=== PATIENT | male | born 1985 | race African-American/Black ===

== ENCOUNTER 2019-12-11 23:42 | Emergency (ER) | payer SELFPAY ==
--- NOTE | 2019-12-12 01:02 | ER Document Report ---
ED Medical Screen (RME) - General Chief Complaint: Abdominal Pain Stated Complaint: ABDOMINAL PAIN Time Seen by Provider: 12/12/19 00:57 Notes: HPI: 34-year-old otherwise healthy male presenting to the emergency department complaining of right lower quadrant pain that is severe in nature. Patient states the pain started on the left side 2 days ago has been constant but now has rotated into the right lower quadrant region. Hurts to bend at the waist hurts to walk hurts to stand up straight. Denies dysuria. Denies penile or testicular pain. PHYSICAL EXAMINATION: Moderately uncomfortable. Rebound tenderness in the right lower quadrant on palpation limited exam in triage I have greeted and performed a rapid initial assessment of this patient. A comprehensive ED assessment and evaluation of the patient, analysis of test results and completion of medical decision making process will be conducted by an additional ED providers. ([facility]) - HPI Notes: 12/12/19 07:22 Chief complaint: Abdominal pain History of present illness: 34-year-old male presenting with 24-hour history abdominal pain initially starting in left lower quadrant and now migratory to right lower quadrant. Eating and drinking normally. No nausea, vomiting, fever, chills or dysuria. Patient reports hernia repair in childhood. No other surgery. Takes no regular medications. No known allergies. Cigarette smoker. Social alcohol. Regularly smokes marijuana. Patient is used cocaine within the last 24 hours. (ALBINA KAMARA) - Related Data Allergies/Adverse Reactions: No Known Allergies Allergy (Unverified 12/12/19 01:01) Past Medical History - General Information source: Patient, Friend, [facility] Records - Social History Cigarette use (# per day): Yes Frequency of alcohol use: Social Drug Abuse: Cocaine, Marijuana Family history: Reviewed & Not Pertinent Endocrine Medical History: Denies: Hx Diabetes Mellitus Type 1, Hx Diabetes Mellitus Type 2 GI Medical History: Reports: None Past Surgical History: Reports: Hx Herniorrhaphy Review of Systems - Review of Systems Notes: Constitutional: Negative for fever. HENT: Negative for sore throat. Eyes: Negative for visual changes. Cardiovascular: Negative for chest pain. Respiratory: Negative for shortness of breath. Gastrointestinal: As per HPI. Genitourinary: Negative for dysuria. Musculoskeletal: Negative for back pain. Skin: Negative for rash. Neurological: Negative for headaches, weakness or numbness. 10 point ROS negative except as marked above and in HPI. (ALBINA KAMARA) Physical Exam - Vital signs Vitals: Temp Pulse Resp BP Pulse Ox 99.1 F 97 18 147/80 H 99 12/12/19 00:16 12/12/19 00:16 12/12/19 00:16 12/12/19 00:16 12/12/19 00:16 - Notes Notes: GENERAL: Slender male approximately stated age appearing in no acute distress. SKIN: Good turgor no rashes. HEAD: Normocephalic atraumatic. EYES: PERRLA. EOMI. Conjunctivae and sclerae clear. EARS: CANALS AND TMS CLEAR. NOSE: CLEAR. MOUTH: Moist mucosa. Good dentition. No stridor or edema. No drooling. NECK: Supple. No masses or thyromegaly. No adenopathy. Carotids 2+ without bruits. No JVD. BACK: Symmetrical without tenderness. CHEST: Respirations unlabored. Breath sounds clear and symmetrical. HEART: Regular rhythm. No murmur gallop or rub. ABDOMEN: Exquisitely tender right lower quadrant. Soft without masses, o rganomegaly or rebound. Bowel sounds normally active. No bruits. GENITALIA: Deferred. EXTREMITIES: No edema. No calf tenderness. Cap refill less than 1.5 seconds. Dorsalis pedis and posterior tibial pulses 3+ and symmetrical. NEUROLOGICAL: GCS 15. Alert and oriented x3. Normal gait. Fluent speech. Cranial nerves II through XII intact. Sensorimotor and cerebellar normal. Normal tone. PSYCHIATRIC: Appropriate affect. (ALBINA KAMARA) Course - Laboratory Result Diagrams: 12/12/19 01:27 12/12/19 01:27 - Re-evaluation Re-evalutation: 12/12/19 07:28 Patient is tender right lower quadrant. Low-grade temperature. Normal white count. Unremarkable urinalysis. Radiologist CT abdomen/pelvis is negative for appendicitis of a right sided cecal diverticulitis. Unfortunately I cannot his images directly. Due to the degree of tenderness I am going to ask for surgical consultation from Dr. Luis Fernando Morales. In the meantime I will keep this man n.p .o. dose of IV Zosyn. (ALBINA KAMARA) - Vital Signs Vital signs: Temp Pulse Resp BP Pulse Ox 98.7 F 82 18 122/90 H 100 12/12/19 04:02 12/12/19 04:02 12/12/19 00:16 12/12/19 04:02 12/12/19 04:02 - Laboratory Laboratory results interpreted by me: 12/12/19 12/12/19 01:27 01:27 RBC 4.26 L Urine Urobilinogen 2.0 H
[2019-12-12 01:37] LABS: ABSOLUTE BASOPHILS # (AUTO) 0.1 10^3/uL (0.0-0.2); ABSOLUTE EOSINOPHILS # (AUTO) 0.1 10^3/uL (0.0-0.6); ABSOLUTE LYMPHOCYTES (AUTO) 2.3 10^3/uL (0.5-4.7); ABSOLUTE MONOCYTES (AUTO) 0.7 10^3/uL (0.1-1.4); ABSOLUTE NEUT (AUTO) 6.9 10^3/uL (1.7-8.2); BASOPHILS % (AUTO) 1.2 % (0-2); EOSINOPHILS % (AUTO) 0.8 % (0-6); HEMATOCRIT 40.4 % (37.9-51.0); HEMOGLOBIN 13.8 g/dL (13.5-17.0); LYMPHOCYTES % (AUTO) 22.6 % (13-45); MEAN CORPUSCULAR HEMOGLOBIN 32.5 pg (27.0-33.4); MEAN CORPUSCULAR HGB CONC 34.3 g/dL (32.0-36.0); MEAN CORPUSCULAR VOLUME 95 fl (80-97); MONOCYTES % (AUTO) 6.8 % (3-13); PLATELET COUNT 303 10^3/uL (150-450); RED BLOOD COUNT 4.26 10^6/uL (4.35-5.55); RED CELL DISTRIBUTION WIDTH 12.1 % (11.5-14.0); SEGMENTED NEUTROPHILS % (AUTO) 68.6 % (42-78); TOTAL CELLS COUNTED % (AUTO) 100 %
[2019-12-12 01:42] LABS: APPEARANCE,URINE CLEAR; BILIRUBIN,URINE NEGATIVE (NEGATIVE); COLOR,URINE YELLOW; GLUCOSE, URINE NEGATIVE (NEGATIVE); KETONES,URINE NEGATIVE (NEGATIVE); LEUKOCYTE ESTERASE,URINE NEGATIVE (NEGATIVE); NITRITE,URINE NEGATIVE (NEGATIVE); PROTEIN,URINE NEGATIVE (NEGATIVE); URINE SPECIFIC GRAVITY 1.025
[2019-12-12 02:05] LABS: ALBUMIN 4.4 g/dL (3.5-5.0); ALKALINE PHOSPHATASE 85 U/L (38-126); ANION GAP 8 (5-19); ASPARTATE AMINO TRANSFERASE 28 U/L (17-59); BILIRUBIN,DIRECT 0.4 mg/dL (0.0-0.4); BILIRUBIN,TOTAL 0.6 mg/dL (0.2-1.3); BLOOD UREA NITROGEN 12 mg/dL (7-20); CALCIUM 9.6 mg/dL (8.4-10.2); CARBON DIOXIDE 28 mmol/L (22-30); CHLORIDE 103 mmol/L (98-107); GLUCOSE 101 mg/dL (75-110); POTASSIUM 4.4 mmol/L (3.6-5.0); TOTAL PROTEIN 7.5 g/dL (6.3-8.2)
[2019-12-12 04:06] VITALS: BP 122/90
--- NOTE | 2019-12-12 05:45 | RADIOLOGY REPORT (SQ) ---
CLINICAL HISTORY: RLQ PAIN. CREAT 1.20 COMPARISON: None. TECHNIQUE: CT ABDOMEN PELVIS WITH IV CONTRAST on 12/12/2019 12:00 AM CDT This exam was performed according to our departmental dose-optimization program, which includes automated exposure control, adjustment of the mA and/or kV according to patient size and/or use of iterative reconstruction technique. FINDINGS: Lower lungs are clear. Abdomen: The liver is normal in appearance. There is no biliary dilatation. Gallbladder is normal in appearance. The pancreas and spleen are normal in appearance. The adrenal glands and kidneys are unremarkable. Abdominal aorta is normal in course and caliber without aneurysm. There is no free air. There is no retroperitoneal adenopathy. Pelvis: There is thickening of the inferior cecum with mild surrounding inflammation. There is an abnormal diverticulum projecting laterally. Urinary bladder is unremarkable. There is no free fluid. Appendix is normal. Skeleton: There are no acute osseous findings. No suspicious bony lesions. IMPRESSION: Normal appendix. Suspected cecal diverticulitis.
[2019-12-12] MEDS ORDERED: PIPERACILLIN/TAZOBACTAM 3.375 GM VIAL IV ONE (07:24)
[2019-12-12] MEDS ORDERED: NORMAL SALINE 1000 ML 1,000 ML IV ONE (07:25)
--- NOTE | 2019-12-12 07:43 | ER Document Report ---
ED General - General Chief Complaint: Lower Abdominal Pain Stated Complaint: ABDOMINAL PAIN Time Seen by Provider: 12/12/19 00:57 - HPI Notes: Chief complaint: Abdominal pain History of present illness: Generally healthy 34-year-old male presenting with 12-hour history of lower abdominal pain initially started in left lower quadrant now moving to right lower quadrant. No nausea, vomiting, fever or chills. Normal bowel movements. Normal oral intake. No prior GI history. Did have a repair of inguinal hernia in childhood. Smoker. Social alcohol. Daily use of marijuana. Occasional use of cocaine. - Related Data Allergies/Adverse Reactions: No Known Allergies Allergy (Unverified 12/12/19 01:01) Past Medical History - General Information source: Patient, Friend, [facility] Records - Social History Smoking Status: Current Every Day Smoker Cigarette use (# per day): Yes Frequency of alcohol use: Social Drug Abuse: Cocaine, Marijuana Family History: Reviewed & Not Pertinent Endocrine Medical History: Denies: Hx Diabetes Mellitus Type 1, Hx Diabetes Mellitus Type 2 GI Medical History: Reports: None Past Surgical History: Reports: Hx Herniorrhaphy Review of Systems - Review of Systems Notes: Constitutional: Negative for fever. HENT: Negative for sore throat. Eyes: Negative for visual changes. Cardiovascular: Negative for chest pain. Respiratory: Negative for shortness of breath. Gastrointestinal: As per HPI. Genitourinary: As per HPI. Musculoskeletal: Negative for back pain. Skin: Negative for rash. Neurological: Negative for headaches, weakness or numbness. 10 point ROS negative except as marked above and in HPI. Physical Exam - Vital signs Vitals: Temp Pulse Resp BP Pulse Ox 99.1 F 97 18 147/80 H 99 12/12/19 00:16 12/12/19 00:16 12/12/19 00:16 12/12/19 00:16 12/12/19 00:16 - Notes Notes: GENERAL: Slender male approximately stated age appearing in no acute distress. SKIN: Good turgor no rashes. HEAD: Normocephalic atraumatic. EYES: PERRLA. EOMI. Conjunctivae and sclerae clear. EARS: CANALS AND TMS CLEAR. NOSE: CLEAR. MOUTH: Moist mucosa. Good dentition. No stridor or edema. No drooling. NECK: Supple. No masses or thyromegaly. No adenopathy. Carotids 2+ without bruits. No JVD. BACK: Symmetrical without tenderness. CHEST: Respirations unlabored. Breath sounds clear and symmetrical. HEART: Regular rhythm. No murmur gallop or rub. ABDOMEN: Exquisitely tender right lower quadrant. Soft without masses, organomegaly or rebound. Bowel sounds normally active. No bruits. GENITALIA: Deferred. EXTREMITIES: No edema. No calf tenderness. Cap refill less than 1.5 seconds. Dorsalis pedis and posterior tibial pulses 3+ and symmetrical. NEUROLOGICAL: GCS 15. Alert and oriented x3. Normal gait. Fluent speech. Cr anial nerves II through XII intact. Sensorimotor and cerebellar normal. Normal tone. PSYCHIATRIC: Appropriate affect. Course - Re-evaluation Re-evalutation: 12/12/19 07:42 Patient has unremarkable urinalysis and normal white count. IV contrast CT abdomen/pelvis per radiologist shows normal appendix but question of cecal diverticulitis. I will ask for consultation from surgical stone call Dr. Luis Fernando Morales. Patient remains n.p.o. at this time. - Vital Signs Vital signs: Temp Pulse Resp BP Pulse Ox 98.7 F 82 18 122/90 H 100 12/12/19 04:02 12/12/19 04:02 12/12/19 00:16 12/12/19 04:02 12/12/19 04:02 - Laboratory Result Diagrams: 12/12/19 01:27 12/12/19 01:27 Laboratory results interpreted by me: 12/12/19 12/12/19 01:27 01:27 RBC 4.26 L Urine Urobilinogen 2.0 H - Diagnostic Test Radiology reviewed: Reports reviewed Discharge - Discharge Clinical Impression: Lower abdominal pain Disposition: AGAINST MEDICAL ADVICE Additional Instructions: Return here immediately for new or worsening symptoms. Strongly advised reevaluation by physician within the next 12 to 24 hours. Prescriptions: Amoxicillin/Potassium Clav [Augmentin 875-125 Tablet] 1 tab PO TID 10 Days #30 tablet
--- NOTE | 2019-12-12 09:11 | PDOC CONSULTATION ---
Consultation Consult Date: 12/12/19 Attending physician:: ALBINA KAMARA Provider Consulted: TERRIE SINGH Consult reason:: abdominal pain History of Present Illness Patient complains of: rt lower quadrent pain History of Present Illness: VIKASH NIELSEN JR is a 34 year old male Generally healthy 34-year-old male presenting with 12-hour history of lower abdominal pain initially started in left lower quadrant now moving to right lower quadrant. No nausea, vomiting, fever or chills. Normal bowel movements. Normal oral intake. No prior GI history. Did have a repair of inguinal hernia in childhood. Smoker. Social alcohol. Daily use of marijuana. Occasional use of cocaine Past Medical History Endocrine Medical History: Denies: Diabetes Mellitus Type 1, Diabetes Mellitus Type 2 GI Medical History: Reports: None Past Surgical History Past Surgical History: Reports: Herniorrhaphy Social History Smoking Status: Current Every Day Smoker Family History Family History: Reviewed & Not Pertinent Parental Family History Reviewed: No Children Family History Reviewed: NA Sibling(s) Family History Reviewed.: NA Medication/Allergy Home Medications: Penicillin V Potassium [Penicillin Vk 500 mg Tablet] 500 mg PO BID #20 tablet 01/04/13 Tramadol HCl [Ultram 50 mg Tablet] 50 mg PO ASDIR PRN #20 tablet 01/04/13 Allergies/Adverse Reactions: No Known Allergies Allergy (Unverified 12/12/19 01:01) Review of Systems Constitutional: PRESENT: fatigue Eyes: ABSENT: as per HPI, visual disturbances, other Ears: ABSENT: as per HPI, hearing changes, other Nose, Mouth, and Throat: ABSENT: as per HPI, headache(s), mouth pain, sore throat, vertigo, other Breasts: ABSENT: as per HPI, other Cardiovascular: ABSENT: as per HPI, chest pain, dyspnea on exertion, edema, orthropnea, palpitations, other Respiratory: ABSENT: as per HPI, cough, dyspnea, hemoptysis, sputum, other Genitourinary: PRESENT: as per HPI Musculoskeletal: ABSENT: joint swelling Integumentary: ABSENT: as per HPI, diaphoresis, erythema, lesions, pruritus, rash, wounds, other Neurological: ABSENT: as per HPI, abnormal gait, abnormal movements, abnormal speech, confusion, convulsions, dizziness, focal weakness, frequent falls, lack of coordination, memory loss, numbness, paresthesias, restless legs, syncope, tingling, tremor(s), vertigo, weakness, other Psychiatric: ABSENT: as per HPI, anxiety, depression, hallucinations, homidical ideation, suicidal ideation, other Endocrine: ABSENT: as per HPI, cold intolerance, flushing, heat intolerance, men strual abnormalities, polydipsia, polyphagia, polyuria, other Hematologic/Lymphatic: ABSENT: easy bleeding, easy bruising Allergic/Immunologic: ABSENT: as per HPI, seasonal rhinorrhea, other Physical Exam Vital Signs: Temp Pulse Resp BP Pulse Ox 98.7 F 82 18 122/90 H 100 12/12/19 04:02 12/12/19 04:02 12/12/19 00:16 12/12/19 04:02 12/12/19 04:02 Intake & Output 12/11/19 12/12/19 12/13/19 06:59 06:59 06:59 Intake Total 1000 Balance 1000 Weight 84.4 kg General appearance: PRESENT: no acute distress Head exam: PRESENT: normocephalic Eye exam: PRESENT: EOMI Ear exam: PRESENT: normal external ear exam Mouth exam: PRESENT: moist Teeth exam: PRESENT: poor dentation Neck exam: PRESENT: full ROM Respiratory exam: PRESENT: clear to auscultation robert Cardiovascular exam: PRESENT: RRR Pulses: PRESENT: normal femoral pulses, normal dorsalis pedis pul Vascular exam: PRESENT: normal capillary refill Breast: PRESENT: Normal GI/Abdominal exam: PRESENT: guarding, rebound, tenderness - rlq Rectal exam: PRESENT: deferred Extremities exam: PRESENT: full ROM Musculoskeletal exam: PRESENT: full ROM Neurological exam: PRESENT: alert, awake, oriented to person, oriented to place Psychiatric exam: PRESENT: appropriate affect Skin exam: PRESENT: dry Results Laboratory Results: 12/12/19 01:27 12/12/19 01:27 12/12/19 12/12/19 12/12/19 01:27 01:27 01:27 WBC 10.0 RBC 4.26 L Hgb 13.8 Hct 40.4 MCV 95 MCH 32.5 MCHC 34.3 RDW 12.1 Plt Count 303 Seg Neutrophils % 68.6 Sodium 138.8 Potassium 4.4 Chloride 103 Carbon Dioxide 28 Anion Gap 8 BUN 12 Creatinine 1.20 Est GFR ( Amer) > 60 Glucose 101 Calcium 9.6 Total Bilirubin 0.6 AST 28 Alkaline Phosphatase 85 Total Protein 7.5 Albumin 4.4 Lipase 228.1 Urine Color YELLOW Urine Appearance CLEAR Urine pH 5.0 Ur Specific [place] 1.025 Urine Protein NEGATIVE Urine Glucose (UA) NEGATIVE Urine Ketones NEGATIVE Urine Blood NEGATIVE Urine Nitrite NEGATIVE Ur Leukocyte Esterase NEGATIVE Urine WBC (Auto) 0 Urine RBC (Auto) 1 Impressions: Abdomen/Pelvis CT 12/12/19 00:00 IMPRESSION: Normal appendix. Suspected cecal diverticulitis. Assessment & Plan - Plan Summary Plan Summary: impression mass vs inflammatory process in cecum\ case discussed with Dr Romeo in radiology he sees the appendix and it is normal however there is some stranding and concerns for a mass in cecum pt offered diagnostic laparosocpy however he defers and does not want surgery at this time please reconsult surgery as necessary.
== END 2019-12-12 09:36 | disposition left against medical advice (07) ==
LOC: ER 23:42
DX: R10.31 Right lower quadrant pain (principal); R10.32 Left lower quadrant pain; R10.813 Right lower quadrant abdominal tenderness; R53.83 Other fatigue; F17.210 Nicotine dependence, cigarettes, uncomplicated; F14.10 Cocaine abuse, uncomplicated; F12.10 Cannabis abuse, uncomplicated
CPT/HCPCS: 99285; 96360; 36415; 83690; 85025; 80053; 81001; 74177; J7030